=== PATIENT | male | born 1980 | race Caucasian/White ===

== ENCOUNTER → 2019-07-12 | Outpatient (REF) | payer OTHER | LOC: M LAB REF 12:28 | PROVIDERS: ATTEND Nurse Practitioner Adult Health | DX: E03.9 Hypothyroidism, unspecified (principal) ==

== ENCOUNTER → 2021-04-15 | Outpatient (REF) | payer OTHER | LOC: M LAB REF 11:11 | PROVIDERS: ATTEND Nurse Practitioner Adult Health | DX: Z11.59 Encounter for screening for other viral diseases (principal) ==

== ENCOUNTER → 2021-04-18 | Outpatient (CLI) | payer BC, OTHER ==
--- NOTE | 2021-04-20 07:51 | REP ---
INDICATION: PAIN COMPARISON: None. TECHNIQUE: AP, lateral, bilateral oblique, and coned-down views of the lumbar spine. FINDINGS: Alignment and lordosis maintained. Vertebral bodies are intact. Disc spaces are relatively normal/age-appropriate. No acute fracture/compression injury or subluxation. No obvious spondylolysis or spondylolisthesis.. IMPRESSION: Normal age-appropriate lumbosacral Spine series. <Electronically signed by Claude Lynch > 04/20/21 1428
== END ==
LOC: M WUC 13:35
PROVIDERS: ATTEND Nurse Practitioner Adult Health
DX: M54.5 Low back pain (principal)

== ENCOUNTER 2021-06-29 15:30 | Emergency (ER) | payer BC, OTHER ==
[~2021-06-29] VITALS: Ht 180.3 cm; Wt 128.8 kg
[2021-06-29 18:01] VITALS: BP 142/78
--- NOTE | 2021-06-29 18:02 | REPVR ---
PROCEDURE INFORMATION: Exam: CT Lumbar Spine Without Contrast Exam date and time: 06/29/2021 5:24 PM Age: 41 years old Clinical indication: Injury or trauma; Fall; Blunt trauma (contusions or hematomas); Additional info: Fall at noon, xray [facility] t6 fracture TECHNIQUE: Imaging protocol: Computed tomography images of the lumbar spine without contrast. Radiation optimization: All CT scans at this facility use at least one of these dose optimization techniques: automated exposure control; mA and/or kV adjustment per patient size (includes targeted exams where dose is matched to clinical indication); or iterative reconstruction. COMPARISON: CR SPINE LS COMPLETE 04/18/2021 1:51 PM FINDINGS: Vertebrae: There is a large probable Schmorl's node/intravertebral body disc herniation involving the superior endplate of L3 to the right of midline. It is likely not acute. There is no retropulsed bone fragment. No acute fracture seen in the lumbar spine. Discs/Spinal canal/Neural foramina: There is no significant spinal canal stenosis. There may be an asymmetrically bulging annulus to the right of midline at the L5-S1 level narrowing the right neural foramen which could potentially affect the right L5 nerve root. Soft tissues: Unremarkable. IMPRESSION: 1. There is a probable Schmorl's node involving the superior endplate of L3 to the right of midline. No definite evidence of neural compromise in the lumbar spine. No acute fractures are identified. 2. There may be an asymmetrically bulging annulus at the L5-S1 level which could potentially affect the right L5 nerve root in the neural foramen. Series 205, image 59. Electronically signed by: Celine Peoples On 06/29/2021 18:01:39 PM
--- NOTE | 2021-06-29 18:09 | REPVR ---
PROCEDURE INFORMATION: Exam: CT Thoracic Spine Without Contrast Exam date and time: 06/29/2021 5:24 PM Age: 41 years old Clinical indication: Injury or trauma; Fall; Fracture, traumatic; Unspecified; Additional info: Fall at noon, xray [facility] t6 fracture TECHNIQUE: Imaging protocol: Computed tomography images of the thoracic spine without contrast. Radiation optimization: All CT scans at this facility use at least one of these dose optimization techniques: automated exposure control; mA and/or kV adjustment per patient size (includes targeted exams where dose is matched to clinical indication); or iterative reconstruction. COMPARISON: CR SPINE LS COMPLETE 04/18/2021 1:51 PM FINDINGS: Vertebrae: There are probable acute compression fractures of the superior endplates of T4 and T6 with a mild wedge configuration at the T6 level. There are no retropulsed bone fragments. Alignment is normal. Discs/Spinal canal/Neural foramina: There is no spinal canal stenosis or neural foraminal narrowing. Soft tissues: Mild increased density in the prevertebral soft tissues at the levels of the endplate compression fractures. IMPRESSION: There are compression fractures at the T4 and T6 levels involving the superior endplates at both with a mild wedge configuration therefore involvement of the inferior endplate of T6 as well. There are no retropulsed bone fragments. No spinal canal stenosis or neural foraminal narrowing. Electronically signed by: Celine Peoples On 06/29/2021 18:09:16 PM
[2021-06-29] MEDS ORDERED: ACET1TAB16 PO (18:54)
[2021-06-29] MEDS ORDERED: NORCO, ANEXSIA 5/325MG TABLET (HYDROcodone/ACETAMINOPHEN) PO ONE (18:55)
--- NOTE | 2021-06-30 06:34 | ED PDOC ---
Post-Departure Follow-Up ct t spne and ls spine faxed to dr deborah adkins for fu Shukri Killian MD Jun 30, 2021 06:34
== END 2021-06-29 19:22 | disposition home or self-care (01) ==
LOC: M ED 15:30
DX: S22.040A Wedge compression fracture of fourth thoracic vertebra, initial encounter for closed fracture (principal); S22.050A Wedge compression fracture of T5-T6 vertebra, initial encounter for closed fracture; W10.9XXA Fall (on) (from) unspecified stairs and steps, initial encounter; Y92.009 Unspecified place in unspecified non-institutional (private) residence as the place of occurrence of the external cause; Y93.9 Activity, unspecified; Y99.9 Unspecified external cause status; I10 Essential (primary) hypertension; F41.9 Anxiety disorder, unspecified; F17.290 Nicotine dependence, other tobacco product, uncomplicated

== ENCOUNTER → 2022-10-28 | Outpatient (CLI) | payer BC, OTHER ==
[~2022-10-28] MED LIST: ACET300T48 PO
== END ==
LOC: M WUC 13:47
PROVIDERS: ATTEND Physician Assistant
DX: S90.32XA Contusion of left foot, initial encounter (principal)

== ENCOUNTER → 2024-06-14 | Outpatient (CLI) | payer BC ==
[2024-06-17 18:22] LABS: LYME TOTAL ANTIBODY CIA <= 0.90 Index (<=0.90)
== END ==
LOC: M PLAIMG 11:16 → M PLALAB 11:16
PROVIDERS: ATTEND Nurse Practitioner Adult Health
DX: R06.01 Orthopnea (principal)

== ENCOUNTER → 2024-06-29 | Outpatient (CLI) | payer BC | LOC: M RAD 07:20 | PROVIDERS: ATTEND Nurse Practitioner Adult Health | DX: J18.1 Lobar pneumonia, unspecified organism (principal); R91.8 Other nonspecific abnormal finding of lung field; K80.20 Calculus of gallbladder without cholecystitis without obstruction ==

== ENCOUNTER → 2025-05-30 | Outpatient (CLI) | payer BC | LOC: M SLEEP 20:00 | PROVIDERS: ATTEND Physician Assistant | DX: G47.33 Obstructive sleep apnea (adult) (pediatric) (principal) ==